=== PATIENT | male | born 1955 | race Caucasian/White ===

== ENCOUNTER 2016-10-26 08:00 | Outpatient (CLI) | payer OTHER | END 2016-10-26 08:01 | disposition home or self-care (01) | DX: Z12.5 Encounter for screening for malignant neoplasm of prostate (principal); E78.2 Mixed hyperlipidemia ==

== ENCOUNTER 2017-04-07 15:26 | Outpatient (CLI) | payer OTHER ==
[2017-04-07 14:25] LABS: BILIRUBIN,TOTAL 0.6 mg/dL (0.2-1.0); TOTAL PROTEIN 6.8 g/dL (6.7-8.2)
[2017-04-07 14:26] LABS: BILIRUBIN,DIRECT < 0.1 mg/dL (0.1-0.5)
== END 2017-04-07 15:27 | disposition home or self-care (01) ==
LOC: LAB.N 15:26
PROVIDERS: ATTEND Physician Assistant
DX: B35.1 Tinea unguium (principal); Z79.899 Other long term (current) drug therapy; Z85.828 Personal history of other malignant neoplasm of skin; L82.1 Other seborrheic keratosis; D23.9 Other benign neoplasm of skin, unspecified; D18.01 Hemangioma of skin and subcutaneous tissue; D48.5 Neoplasm of uncertain behavior of skin
CPT/HCPCS: 36415; 80076

== ENCOUNTER 2017-11-18 08:35 | Outpatient (CLI) | payer OTHER ==
[2017-11-18 13:43] LABS: CHOL/HDL RATIO 3.4 (<5.0); CHOLESTEROL 266 mg/dL; HDL CHOLESTEROL 78 mg/dL; LDL CHOLESTEROL,CALCULATED 176 mg/dL; LDL/HDL RATIO 2.3 (<3.6); VLDL CHOLESTEROL 12 mg/dL
[2017-11-19 12:51] LABS: HEPATITIS C ANTIBODY NON-REACTIVE (NON-REACTIVE)
== END 2017-11-18 08:36 | disposition home or self-care (01) ==
LOC: LAB.R 08:35
PROVIDERS: ATTEND Internal Medicine
DX: Z00.8 Encounter for other general examination (principal); E78.5 Hyperlipidemia, unspecified
CPT/HCPCS: 80061; 83721; 86803

== ENCOUNTER 2018-03-20 09:11 | Outpatient (CLI) | payer OTHER ==
[2018-03-20 15:19] LABS: ALKALINE PHOSPHATASE 47 IU/L (42-121); ALT ALANINE AMINOTRANSFERASE 23 IU/L (10-60); AST ASPARTATE AMINOTRANSFERASE 24 IU/L (10-42); BILIRUBIN,TOTAL 0.4 mg/dL (0.2-1.0); TOTAL PROTEIN 6.6 g/dL (6.7-8.2)
[2018-03-20 15:52] LABS: BILIRUBIN,DIRECT < 0.1 mg/dL (0.1-0.5)
== END 2018-03-20 09:12 | disposition home or self-care (01) ==
LOC: LAB.R 09:11
PROVIDERS: ATTEND Physician Assistant Medical
DX: Z79.899 Other long term (current) drug therapy (principal); B37.2 Candidiasis of skin and nail
CPT/HCPCS: 80076

== ENCOUNTER 2018-04-17 08:10 | Outpatient (CLI) | payer OTHER ==
[2018-04-17 22:21] LABS: ALBUMIN 4.2 g/dL (3.2-5.5); ALKALINE PHOSPHATASE 53 IU/L (42-121); ALT ALANINE AMINOTRANSFERASE 23 IU/L (10-60); AST ASPARTATE AMINOTRANSFERASE 25 IU/L (10-42); BILIRUBIN,TOTAL 0.7 mg/dL (0.2-1.0); TOTAL PROTEIN 6.6 g/dL (6.7-8.2)
[2018-04-17 22:22] LABS: BILIRUBIN,DIRECT < 0.1 mg/dL (0.1-0.5)
== END 2018-04-17 08:11 | disposition home or self-care (01) ==
LOC: LAB.R 08:10
PROVIDERS: ATTEND Physician Assistant Medical
DX: Z79.899 Other long term (current) drug therapy (principal); B37.2 Candidiasis of skin and nail
CPT/HCPCS: 80076

== ENCOUNTER 2018-05-23 08:00 | Outpatient (CLI) | payer OTHER ==
[2018-05-23 14:34] LABS: ALBUMIN 4.2 g/dL (3.2-5.5); ALKALINE PHOSPHATASE 50 IU/L (42-121); ALT ALANINE AMINOTRANSFERASE 18 IU/L (10-60); AST ASPARTATE AMINOTRANSFERASE 22 IU/L (10-42); BILIRUBIN,TOTAL 0.6 mg/dL (0.2-1.0); TOTAL PROTEIN 6.7 g/dL (6.7-8.2)
[2018-05-23 14:35] LABS: BILIRUBIN,DIRECT < 0.1 mg/dL (0.1-0.5)
== END 2018-05-23 08:01 | disposition home or self-care (01) ==
LOC: LAB.R 08:00
PROVIDERS: ATTEND Physician Assistant Medical
DX: Z79.899 Other long term (current) drug therapy (principal); B37.2 Candidiasis of skin and nail
CPT/HCPCS: 80076

== ENCOUNTER 2019-02-08 11:31 | Outpatient (CLI) | payer MEDICARE, OTHER | END 2019-02-08 11:32 | disposition home or self-care (01) | LOC: LAB 11:31 | PROVIDERS: ATTEND Family Medicine | DX: R97.20 Elevated prostate specific antigen [PSA] (principal) | CPT/HCPCS: 36415; 84153 ==

== ENCOUNTER 2023-04-11 14:00 | Outpatient (CLI) | payer MEDICARE, OTHER | END 2023-04-11 14:01 | disposition home or self-care (01) | LOC: SC 14:00 | PROVIDERS: ATTEND Nurse Practitioner Family | DX: G47.33 Obstructive sleep apnea (adult) (pediatric) (principal); G47.61 Periodic limb movement disorder | CPT/HCPCS: 95810 ==

== ENCOUNTER 2023-04-29 08:03 | Outpatient (CLI) | payer MEDICARE, OTHER ==
[2023-04-29 08:16] LABS: EOSINOPHILS # (AUTO) 0.2 10^3/uL (0.0-0.7); EOSINOPHILS % (AUTO) 5.6 %; HCT - HEMATOCRIT 39.8 % (42.0-52.0); HGB - HEMOGLOBIN 13.3 g/dL (14.0-18.0); LYMPHOCYTES # (AUTO) 1.5 10^3/uL (1.5-3.5); LYMPHOCYTES % (AUTO) 37.2 %; MEAN CORPUSCULAR HEMOGLOBIN 30.2 pg (27.0-31.0); MEAN CORPUSCULAR HGB CONC 33.4 g/dL (32.0-36.0); MEAN CORPUSCULAR VOLUME 90.2 fL (80.0-94.0); MEAN PLATELET VOLUME 10.7 fL (7.4-11.4); MONOCYTES # (AUTO) 0.7 10^3/uL (0.0-1.0); MONOCYTES % (AUTO) 17.1 %; NEUTROPHILS # (AUTO) 1.5 10^3/uL (1.5-6.6); NEUTROPHILS % (AUTO) 38.8 %; PLT - PLATELET COUNT 172 10^3/uL (130-450); RED BLOOD COUNT 4.41 10^6/uL (4.70-6.10); RED CELL DISTRIBUTION WIDTH 12.5 % (12.0-15.0); WHITE BLOOD COUNT 3.9 x10^3/uL (4.8-10.8)
[2023-04-29 08:29] LABS: ALBUMIN/GLOBULIN RATIO 1.7 (1.0-2.2); ALKALINE PHOSPHATASE 43 IU/L (42-121); ALT ALANINE AMINOTRANSFERASE 16 IU/L (10-60); AST ASPARTATE AMINOTRANSFERASE 19 IU/L (10-42); BILIRUBIN,TOTAL 0.5 mg/dL (0.2-1.0); BUN - BLOOD UREA NITROGEN 17 mg/dL (6-20); CALCIUM 8.6 mg/dL (8.5-10.3); CARBON DIOXIDE - CO2 31 mmol/L (21-32); CHLORIDE 104 mmol/L (101-111); CHOL/HDL RATIO 3.9 (<5.0); CHOLESTEROL 247 mg/dL; CREATININE 1.1 mg/dL (0.6-1.3); GFR - MDRD 66 (>89); GLUCOSE 98 mg/dL (74-104); HDL CHOLESTEROL 64 mg/dL; LDL CHOLESTEROL,CALCULATED 158 mg/dL; LDL/HDL RATIO 2.5 (<3.6); POTASSIUM 4.2 mmol/L (3.5-4.5); SODIUM 138 mmol/L (135-145); TOTAL PROTEIN 6.4 g/dL (6.4-8.9); TRIGLYCERIDES 123 mg/dL (48-352); VLDL CHOLESTEROL 25 mg/dL
== END 2023-04-29 08:04 | disposition home or self-care (01) ==
LOC: LAB 08:03
PROVIDERS: ATTEND Family Medicine
DX: E78.5 Hyperlipidemia, unspecified (principal); D72.819 Decreased white blood cell count, unspecified; Z12.5 Encounter for screening for malignant neoplasm of prostate
CPT/HCPCS: 36415; 80053; 80061; 85025; G0103; 83721; 84153

== ENCOUNTER 2023-05-03 09:44 | Outpatient (CLI) | payer MEDICARE, OTHER ==
--- NOTE | 2023-05-03 10:30 | Sleep Patient Instructions ---
Sleep Center Visit Summary - Patient Visit Information Reason for Visit: Sleep Study followup - Patient Instructions Additional Instructions: You are being continued on CPAP therapy with pressure setting at 4-6 cmH2O. You will need to call the sleep care office to set up your follow up once you have your APAP machine and we will schedule a visit to check compliance and response to therapy at that time. You may call the office with any concerns about pressure feeling too low or too much for adjustment, if needed. You should contact DME supplier for any questions or concerns about mask or equipment. Please call office to schedule a follow up appointment in the sleep care office one month after obtaining new device. - Clinic Information Contact: [facility] [address] [place] [email or web address] T: [phone]
--- NOTE | 2023-05-03 10:35 | SLEEP CARE CONSULTATION ---
Information from patient questionnaire entered by Sylvia Fowler. I have reviewed and concur with the information entered by Sylvia Fowler. This document represents the service I personally performed and the decisions made by , Blanquita Paz ARNP. History of Present Illness Service Date and Time: 05/03/2023 0944 Initial [place] Sleepiness Scale score: 2 (02/14/23) Current [place] Sleepiness Scale score: 1 Additional HPI information: CRISTI MEI returns for follow up and results of the recently performed polysomnography. The sleep study showed mild obstructive sleep apnea with an average AHI of 7 and faby oxygen saturation of 85%. He also had moderate PLMs that did contribute to sleep fragmentation. I explained the pathophysiology behind obstructive sleep apnea. We then spent quite a bit of time discussing different treatment options. For mild obstructive sleep apnea, surgery and oral appliance are alternatives to nasal CPAP therapy but in moderate or severe cases, nasal CPAP is the most effective and reliable treatment. Because apnea is primarily in supine position, then positional management therapy could be effective. Methods discussed such as positioning with pillows, using a T-shirt with tennis balls in the back or commercial products that have a pillow format on back to prevent supine sleep. I reviewed the impact of weight changes on sleep apnea and strongly recommended losing weight. After some d iscussion, the patient opted to continue with the nasal CPAP therapy. Nasal autoCPAP set at 4-6 cmH2O. Patient counseled not drink alcohol less than 4 hours before bedtime as it can increase snoring and apnea. Patient was cautioned about risks of drowsy driving until sleepiness symptoms resolve. Patient denies drowsy driving. Sleep Study - Results Type of Sleep Study: Polysomnography (COMPLETED 04/11/23) Prior sleep studies: No Polysomnography/Home Sleep Study results: IMPRESSION: The quality of the study is good. 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 The sleep architecture was abnormal for sleep fragmentation and reduced amount of time spent in REM sleep.. Respiratory monitoring showed mild obstructive sleep apnea-hypopnea (AHI = 7.0) associated with frequent arousals, oxyhemoglobin desaturation and mild hypoxia (faby oxygen saturation of 85%). The respiratory events occurred almost exclusively during supine sleep (supine AHI = 23.3; non-supine = 3.99). Snore was infrequent and light in intensity. There was moderate periodic leg movement of sleep contributing to the sleep fragmentation. Cardiac rhythm was normal sinus rhythm without significant arrhythmia. No abnormal behavior (parasomnia) observed during the night. Allergies and Home Medications Known drug allergies: No Drug allergies reviewed: Yes Home medication list reviewed: Yes (no changes) Allergy and home medication list: Allergies No Known Drug Allergies Allergy (Verified 04/29/23 08:37) Review of Systems Review of systems same as previous: Yes (no changes) Physical Exam Vital signs obtained and entered by: BLANQUITA ISSA-Heydi Blood Pressure: 144/78 Cuff size: wrist (right) Heart Rate: 59 O2 Saturation: 97 Height: 5 ft 6 in Weight: 152 lb 6.4 oz Body Mass Index: 24.5 BMI Classification: Normal Impression and Plan 1. Obstructive Sleep Apnea-Hypopnea Syndrome, mild, with lowest oxygen saturation of 85%. As mentioned above, the patient will be started on nasal autoCPAP therapy with pressure set at 4-6 cmH2O. Compliance guidelines also reviewed. A copy of compliance guidelines will be given for reference at check out. He has used a CPAP in the past but it is an old device he obtained on his own. I will set him up with a DME and new machine. He will call to schedule appointment once he has new device for compliance visit. 2. Periodic limb movement, moderate, that did not fragment patients sleep. Periodic limb movement of sleep (PLMS) is characterized by episodes of repetitive limb movements that occur during sleep and usually involve the lower limbs. The etiology is unknown. Sleep hygiene methods can also improve sleep as well as lifestyle changes such as regular exercise. Patient was advised that no treatment is needed at this time. If symptoms increase, then further evaluation is indicated. * Start auto CPAP pressure at 4-6 cmH2O with supplies * Notify me if snoring with mask or feeling that the pressure is too much or too little * Call this office if any problems using CPAP * Return for follow up one month after obtaining new machine, or sooner if concerns arise Counseling Topics: Sleeping position Prescriptions: Auto CPAP Plan: followup after obtaining new CPAP for compliance visit Visit Type: In Office Time Spent with Patient (minutes): 22 Provider Statement: I spent 100% of the Face to Face Visit with the patient with greater than 50% spent counseling the patient and coordination of care.
[2023-05-03 10:36] VITALS: BP 144/78; O2SAT 97
== END 2023-05-03 09:45 | disposition home or self-care (01) ==
LOC: SC 09:44
PROVIDERS: ATTEND Nurse Practitioner Family
DX: G47.33 Obstructive sleep apnea (adult) (pediatric) (principal); G47.61 Periodic limb movement disorder
CPT/HCPCS: 99213; G0463; 99212

== ENCOUNTER 2023-06-28 12:52 | Outpatient (CLI) | payer MEDICARE, OTHER ==
--- NOTE | 2023-06-28 13:17 | Sleep Patient Instructions ---
Sleep Center Visit Summary - Patient Visit Information Reason for Visit: First compliance with new CPAP - Patient Instructions Additional Instructions: You were here for follow up of CPAP therapy. You will be continued on CPAP therapy with pressure at 4-6 cmH2O. You should follow up with sleep care in 12 months. You may contact us sooner for any questions or concerns. - Clinic Information Contact: [facility] [address] [place] [address] [email or web address] T: [phone]
--- NOTE | 2023-06-28 13:21 | SLEEP CARE CONSULTATION ---
Information from patient questionnaire entered by Lona Fowler. I have reviewed and concur with the information entered by Lona Fowler. This document represents the service I personally performed and the decisions made by , Blanquita Paz ARNP. History of Present Illness Service Date and Time: 06/28/2023 1252 Previous diagnosis: Mild, Obstructive Sleep Apnea-Hypopnea Syndrome AHI: 7 (03/2023) Reason for follow up: first compliance after device update Equipment type: CPAP (RESMED Airsense 11, s/u 05/11/2023) Equipment obtained from: Other ([facility]; getting supplies) Mask style: Nasal (wide (medium)) Mask brand: Resmed (Airfit [id number]) Backup mask available: Yes Last cushion change: 2 weeks Prior sleep studies: No Type of Sleep Study: Polysomnography (COMPLETED 04/11/23) HPI additional information: CRISTI MEI was diagnosed to have mild, AHI 7, obstructive sleep apnea- hypopnea syndrome and returned today for CPAP therapy first compliance after updating device follow-up. Sleep Study - Results Type of Sleep Study: Polysomnography (COMPLETED 04/11/23) Prior sleep studies: No CPAP Compliance Data - Data Reviewed with Patient Average duration of nightly device use: 7 HRS 55 MINS Compliance rate %: 73 (05/11/23-06/09/23) Current pressure setting (cmH2O): 4-6 Average residual AHI: 1.0 Average large leak: 0.0 L/min Subjective Patient concerns: denies: aerophagia, mask discomfort, air blowing in eyes, mask leak noise, condensation in mask/hose, nasal congestion, dry mouth, nose, th roat, epistaxis Observed to snore while using device: No Current pressure setting perceived as: comfortable On therapy, patient: reports: sleeping better, awakening more refreshed, being more awake and alert during the day, more rested overall. denies: drowsiness while driving Initial [place] Sleepiness Scale score: 2 (02/14/23) Current [place] Sleepiness Scale score: 0 (06/28/23) Allergies and Home Medications Known drug allergies: No Drug allergies reviewed: Yes Home medication list reviewed: Yes (no changes) Allergy and home medication list: Allergies No Known Drug Allergies Allergy (Verified 06/24/23 09:22) Review of Systems Review of systems same as previous: No (HERNIA SURGERY 06/29/23) Physical Exam Vital signs obtained and entered by: LONA Soliz MA Blood Pressure: 148/100 (RIGHT ARM) Cuff size: regular Heart Rate: 78 O2 Saturation: 97 Height: 5 ft 6 in Weight: 156 lb 6.4 oz (with clothes/shoes) Body Mass Index: 25.2 BMI Classification: Overweight Impression and Plan 1. Obstructive Sleep Apnea-Hypopnea Syndrome, mild, with good treatment compliance and good apnea control. On CPAP therapy, the patient has better sleep quality and is more rested overall. He has significant improvement of his sleep apnea and is comfortable with CPAP use. Patient denies problems with oral dryness, nasal congestion, epistaxis, skin irritation or aerophagia. He has been using a CPAP for a long time and likes the new CPAP device. I will followup with him in 12 months or he may come in sooner if concerns arise. Patient's apnea severity and rationale for treatment to reduce apnea, improve sleep quality and reduce cardiovascular and cerebrovascular events was reviewed. * Continue auto CPAP pressure at 4-6 cmH2O * Notify me if snoring with mask or feeling that the pressure is too much or too little * Attempt to lose weight * Call this office if any problems using CPAP * Return for follow up in 12 months, or sooner if concerns arise Counseling Topics: Spare mask Follow up with Sleep Care in: 1 year Visit Type: In Office Time Spent with Patient (minutes): 20 Provider Statement: I spent 100% of the Face to Face Visit with the patient with greater than 50% spent counseling the patient and coordination of care.
[2023-06-28 13:28] VITALS: BP 148/100; O2SAT 97
== END 2023-06-28 12:53 | disposition home or self-care (01) ==
LOC: SC 12:52
PROVIDERS: ATTEND Nurse Practitioner Family
DX: G47.33 Obstructive sleep apnea (adult) (pediatric) (principal); E66.3 Overweight; Z68.25 Body mass index [BMI] 25.0-25.9, adult
CPT/HCPCS: 99213; G0463; 99212